=== PATIENT | female | born 1935 | race Caucasian/White ===

== ENCOUNTER 2018-05-14 05:18 | Inpatient (IN) ==
[2018-05-14] MEDS ORDERED: Metoprolol Tartrate 25 MG Tablet PO ONE (05:48)
[2018-05-14] MEDS ORDERED: Chlorhexidine Gluconate 2% 1 Pack (2 Cloths) TOPICAL ONE (05:48)
[2018-05-14] MEDS ORDERED: Vancomycin Inj 1,000 MG in Sodium Chlor 0.9% Inj 250 ML IV.SIG SCH (06:00)
[2018-05-14] MEDS ORDERED: SODIUM CHLOR 0.9% IV.SIG SCH (06:00)
[2018-05-14] MEDS ORDERED: ceFAZolin 2 GM Premix Inj 2 GM/50 ML PIGGYBACK IV.SIG SCH (06:00)
[2018-05-14] MEDS ORDERED: TRANEXAMIC ACID IV.SIG SCH (06:00)
[2018-05-14] MEDS ORDERED: Sodium Chlor 0.9% Inj 60 ML, Bupivacaine Liposo PF 1.3% Inj 20 ML P-ARTICULR SCH ×2 (06:00)
[2018-05-14] MEDS ORDERED: Sodium Chlor 0.9% Inj 500 ML IV.SIG SCH (06:00)
[2018-05-14] MEDS ORDERED: Chlorhexidine 4% Topical 120 APPLIC/120 ML Bottle TOPICAL SCH (06:00)
[2018-05-14] MEDS ORDERED: Neostigmine Inj 5 MG/5 ML Syringe IV.PUSH ONE (07:18)
[2018-05-14] MEDS ORDERED: Succinylcholine Inj 100 MG/5 ML Syringe IV.PUSH ONE (07:18)
[2018-05-14] MEDS ORDERED: Glycopyrrolate Inj 1 MG/5 ML Syringe IV.PUSH ONE (07:18)
[2018-05-14] MEDS ORDERED: hydrALAZINE HCl Inj 20 MG/ML Vial IV.PUSH ONE (07:18)
[2018-05-14] MEDS ORDERED: Bupivacaine/Epinephrine Inj 0.25% 50 ML Vial ONE (07:22)
[2018-05-14] MEDS ORDERED: Bisacodyl 10 MG Supp RECTAL PRN (07:30)
[2018-05-14] MEDS ORDERED: Morphine Inj 4 MG/ML Vial IV.PUSH PRN (07:30)
[2018-05-14] MEDS ORDERED: Post-op Orders (for Pharmacy) OTHER STA (07:30)
[2018-05-14] MEDS ORDERED: Carboxymethylcellulose 0.5% Opth Drops 15 ML Bottle EACH EYE PRN (09:00)
--- NOTE | 2018-05-14 09:18 | P.OP ---
- Preoperative Diagnosis (1) Osteoarthritis of left hip - Postoperative Diagnosis (1) Osteoarthritis of left hip Date of procedure: 05/14/18 Procedure: Left total hip arthroplasty, direct anterior exposure Anesthesia: GETA Surgeon: Austin Aggarwal MD Ammonia Box Operator: ALLYN Howard Operation and Findings: EBL: 200 cc INDICATION: This patient is an 82-year-old female with significant left hip pain related to extensive osteoarthritis. Conservative care as outlined in the attached records including medications, physical therapy, altered activity, injections. The patient presents now for surgical treatment. NOTE: Chelsea Howard PA-C was present for the entire surgical procedure as my elder assistant. In my medical opinion her skill and care was necessary for the proper management of this patient. COMPONENTS: COMPANY: [employer] CUP: [place], 50 mm, 100 series STEM: [place], size 14, high offset HEAD: Metal, 32 mm, +1 Polyethylene liner: 32, neutral PROCEDURE: This patient was brought to the operating room and anesthetized in the supine position. The patient was positioned on the [place] table with the operative leg extended and the contralateral leg held position. The hip and leg was scrubbed with alcohol followed by Hibiclens followed by ChloraPrep and draped sterilely in the clean air suite. Preoperative fluoroscopic images were utilized. A templating x-ray was obtained and printed to be used during the case. A timeout was done and antibiotics were given within a routine time window. A 4 inch incision was made starting 2 cm distal and 2 cm lateral to the anterior superior iliac spine. The tensor fascia isidoro fascia was identified and opened longitudinally in line with the incision. Deep retraction allowed good visualization in the interval between the tensor fascia isidoro and the rectus and this was opened further. The posterior fascia was opened. Crossing vessels were coagulated appropriately. The anterior aspect of the hip capsule was identified. Retractors were placed above and below the capsule. The capsule was opened longitudinally. Stay sutures were utilized creating flaps for the anterior capsule. The femoral neck was cut at the right location and completed with an oscillating saw. The head and neck was removed and taken to the back table. The leg was externally rotated 60 degrees and traction placed on the extremity. The labrum was excised. A portion of the capsule was excised. Visibility was excellent. Retractors were positioned. Starting 6 mm from the final size reamer, we began reaming up to 1 mm from the anticipated size. This was visualized under fluoroscopy. A trial cup was positioned. This also was visualized under fluoroscopy and minor adjustments were made. The final preparation with a 50MM reamer was utilized. The final cup was positioned in approximately 40 degrees of abduction and 20 degrees of forward flexion. This is visualized under fluoroscopy and was seated into the final position. Position was very satisfactory. A single hole eliminator was positioned followed by the plastic liner. The final solution was excellent. Traction was let off. The leg was brought into neutral rotation. A lifting took was positioned underneath the greater trochanter and proximal femur. The leg was maximally X rotated and the foot drop to the floor across midline. Retractors were positioned. A box osteotome was used to gain entrance into the top of the femur. The canal was probed with a finder to ensure that we are within the canal. Successive broaching up to the final stem size was accomplished. Trial reduction showed excellent balancing. Adjustments were made. The wound was irrigated copiously and the canal irrigated. The final stem was inserted in proper orientation. Trial again was trialed and the final head side was impacted. The hip was reduced and with 60 degrees of external rotation the leg to be dropped to the floor without evidence of anterior subluxation. Intraoperative x-rays were obtained. Local anesthesia was utilized for a field block including posterior capsule, inferior capsule, cephalad capsule, region of the greater trochanter, tensor fascia isidoro and subcutaneous tissue. The anterior capsule was repaired with interrupted #2 Tycron sutures. The fascia was run with 0 PDS on a loop. Subcutaneous tissue was approximated 2-0 Vicryl suture and skin with running intradermal 3-0 Vicryl followed by benzoin and Steri-Strips. A sterile dressing was applied. The patient was awakened and taken to the recovery room in satisfactory condition FINDINGS: There was severe osteoarthritis of the hip with remarkable inflammatory changes. The final solution appeared to be excellent. There was no complication that was appreciated.
--- NOTE | 2018-05-14 09:18 | P.DCO ---
- Physical Therapy Physical Therapy: Gait training (3 times weekly for 2 weeks) Hip: Total hip (Direct anterior exposure) Left Lower Extremity Weight Bearing: Weight bearing as tolerated - Nursing RN: 3 days/week x 2 weeks - Certification Need for Home Health services: I have seen patient Mariajose Cole on 05/14/18. My clinical findings support the need for the requested home health care services because: Need for Home Health Services: High risk of falls Homebound Certification: I certify that my clinical findings support that this patient is homebound because: Homebound Certification: Unsteady gait/balance
[2018-05-14] MEDS ORDERED: fentaNYL Citrate Inj 100 MCG/2 ML Ampul ONE (09:53)
--- NOTE | 2018-05-14 10:51 | XR ---
EXAM DATE: 05/14/2018 10:43 AM EST AGE/SEX: 82 years / Female INDICATIONS: Left total hip surgery. CLINICAL DATA: This is the patient's initial encounter. Patient reports that signs and symptoms have been present for 1 day and indicates a pain score of Nonresponsive. MEDICAL/SURGICAL HISTORY: None. None. COMPARISON: No prior exams available for comparison. FINDINGS: The patient is post left hip arthroplasty the orthopedic hardware is in excellent position. Alignment is good. CONCLUSION: Orthopedic hardware in good position. Electronically signed by: Oscar Gutierrez MD 05/14/2018 10:49 AM EST
[2018-05-14] MEDS: ceFAZolin 1 GM Premix Inj 1 GM/50 ML FROZ.PIGGY IV.SIG SCH ×2 (13:08→18:40)
[2018-05-14] MEDS ORDERED: Temazepam 15 MG Capsule PO PRN (21:00)
[2018-05-14] MEDS: Multivitamin/Minerals Therapeutic Tablet PO SCH ×2 (21:42→22:25)
[2018-05-14] MEDS: Senna/Docusate Sodium 8.6/50 MG Tablet PO SCH ×2 (21:42→21:43)
--- NOTE | 2018-05-14 22:28 | P.DS ---
Date of admission: 05/14/18 05:18 Primary care physician: Santo Patiño MD Attending physician on discharge: Austin Aggarwal Anticipated date of discharge: 05/17/18 Brief History from admission: Ms. Cole presents with a 1-2 year history of increasing left hip pain. She underwent right total hip arthroplasty in 2016 and did well. DS: Diagnosis - Discharge Diagnosis (1) Osteoarthritis of left hip Status: Acute DS: Medications - Discharge Medications Prescriptions: aspirin 81 mg PO BID #60 tab hydrocodone-acetaminophen 1 tab PO Q4H PRN #42 tab PRN Reason: Acute Pain DS: Summary Hospital Course: Surgical treatment was performed on the day of admission without complication. She recovered well in PACU. Pain was controlled with IV and oral medications. She was compliant with physical therapy and all total hip precautions. After 2 days she was found to be stable and discharged home with home health care. She was instructed to continue therapy, to pursue a high fiber diet for 3-5 days and to ice the operative limb daily. She was given prescriptions for norco and ASA. - Time Spent with Patient Total time spent providing and/or coordinating discharge services: Greater than 30 minutes - Quality: VTE Deep Vein Thrombosis/Pulmonary Embolism Present on Admission: No Exam Vital signs: Vital Signs 05/14/18 06:46 05/14/18 09:50 05/14/18 10:00 Temperature 97.2 F L 97.8 F Pulse Rate 58 L 75 87 Respiratory Rate 20 14 14 Blood Pressure 160/79 H 133/63 160/70 H Pulse Oximetry 99 99 100 05/14/18 10:15 05/14/18 10:30 05/14/18 10:45 Temperature 97.9 F Pulse Rate 83 87 85 Respiratory Rate 14 14 Blood Pressure 150/60 H 147/67 H 156/70 H Pulse Oximetry 100 100 100 05/14/18 11:45 05/14/18 12:00 05/14/18 16:00 Temperature 97.9 F 97.7 F 98.3 F Pulse Rate 87 90 79 Respiratory Rate 14 17 17 Blood Pressure 144/55 H 125/59 L 130/69 Pulse Oximetry 99 96 95 05/14/18 17:08 05/14/18 17:38 Temperature Pulse Rate Respiratory Rate 20 20 Blood Pressure Pulse Oximetry Intake & Output 05/14/18 05/14/18 05/15/18 06:59 18:59 06:59 Intake Total 2256.5 / 2256.5 50 / 50 Output Total 200 / 200 Balance 2056.5 / 2056.5 50 / 50 Weight 64.8 kg 64.8 kg Intake: IV 2256.5 / 2256.5 50 / 50 LR 1000 mL Inj 1,000 ML @ 30 1800 / 1800 mls/hr IV.SIG .Q24H THEA Rx#: [id number] Cyklokapron Inj 650 MG In NS 106.5 / 106.5 Inj 100 ML @ 200 mls/hr IV.SIG ONCE THEA Rx#:[id number] Vancomycin Inj 1,000 MG In NS 250 / 250 Inj 250 ML @ 250 mls/hr IV.SIG SHELLFISH MEAT SEPARATOR OPERATOR THEA Rx#:[id number] Ancef 1 GM Premix Inj 1 gm In 50 / 50 50 / 50 50 ml @ 100 mls/hr IV.SIG Q6H THEA Rx#:[id number] Ancef 2 GM Premix Inj 2 gm In 50 / 50 50 ml @ 100 mls/hr IV.SIG SHELLFISH MEAT SEPARATOR OPERATOR THEA Rx#:[id number] Output: Estimated Blood Loss 200 / 200 Other: # Voids 1 Date of Last Bowel Movement 05/13/18 Weight On Admission 64.8 kg Results Procedures completed during hospitalization: Left total hip arthroplasty, direct anterior approach Labs on day of discharge: Labs from last 24 hours 05/14/18 06:22 Blood Type AB Positive Antibody Screen Negative MTS Gel Crossmatch See Detail - Impressions ITS Impressions Hip X-Ray 05/14/18 00:00 CONCLUSION: Orthopedic hardware in good position. Discharge Plan - Discharge Disposition Patient Disposition: Discharge to SNF - Discharge Condition Condition: Good - Discharge Order Discharge Orders: Discharge Order (Routine); Ordered 05/16/18 Ordered By: Chelsea Howard Orthopedic Clear for Discharge (Routine); Ordered 05/14/18 Ordered By: Chelsea Howard - Discharge Details Anticipated Discharge Date: 05/16/18 - Physicians Team Primary Care Provider: Santo Patiño Attending Provider: Austin Aggarwal Other Providers: [facility] - Rxs /Orders / Referrals /Forms Prescriptions: New aspirin 81 mg Tablet,Chewable 81 mg PO BID Qty: 60 RF: 0 hydrocodone-acetaminophen 10-325 mg Tablet 1 tab PO Q4H PRN (Reason: Acute Pain) Qty: 42 RF: 0 Continue carboxymethylcellulose sodium [TheraTears] 0.25 % Drops 1 drp OPHTHALMIC (EYE) TID PRN (Reason: Dry Eye(S)) cholecalciferol (vitamin D3) [Vitamin D3] 2,000 unit Tablet 2,000 unit PO DAILY cyanocobalamin (vitamin B-12) [Vitamin B-12] 1,000 mcg Tablet 3,000 mcg PO DAILY docusate sodium 50 mg Capsule 50 mg PO HS escitalopram oxalate 20 mg Tablet 20 mg PO DAILY hydrocodone-acetaminophen 5-325 mg Tablet 1 tab PO BID PRN (Reason: Pain) lactobacillus combination no.4 [Probiotic] 3 billion cell Capsule 3,000 mmu cells PO DAILY multivitamin Tablet 1 tab PO DAILY [id number] [Airborne (lysine HCl)] 1,000-50 mg Tablet, Effervescent 1 tab PO PRN PRN (Reason: supplement) omega [id number]-[id number]-fish oil [Fish Oil] 1,000 mg (120 mg-180 mg) Capsule 1,200 mg PO DAILY Referrals: Santo Patiño MD [Primary Care Provider] - See Instructions - Post Discharge Care Plan Care Plan Goals: Discharge Care Plan Goals for Left Total Hip Replacement You had a hip replacement surgery. This means your natural hip was replaced with an artificial joint (prosthesis). You may be recovering at home or in a rehabilitation facility. Either way, you must take care of your new hip. Here are some goals to help you heal well. Directions to Meet your Goals: 1. Activity & Exercises: * Take pain medicine as directed by your doctor. * Dont drive until your doctor says its OK. And never drive while taking opioid pain medicine. * Wear the support stockings you were given in the hospital as directed by your surgeon. * Dont sit for more than 30 to 45 minutes at one time. * Dont lean forward while sitting. * Dont cross your legs. * Keep your feet flat on the floor. Dont turn your foot or leg inward. This stresses your hip joint. * Use an elevated toilet seat for 6 weeks after surgery. * Nap if you are tired, but dont stay in bed all day. * Sit on a firm cushion when you ride in a car and avoid sitting too low. Try not to bend your hip too much when getting in and out of the car. 2. Prevent Falls/Injury: * Follow your doctors orders regarding how much weight to put on the affected leg. * Dont bend at the hip when you bend over. Don't bend at the waist to put on socks and shoes. And avoid picking up items from the floor. * Use a cane, crutches, a walker, or handrails until your balance, flexibility, and strength improve. And remember to ask for help from others when you need it. * Free up your hands so that you can use them to keep balance. Use a ina pack , apron, or pockets to carry things. * Arrange your household to keep the items you need handy. Keep everything else out of the way. * Remove items that may cause you to fall, such as throw rugs and electrical cords. * Use nonslip bath mats, grab bars, an elevated toilet seat, and a shower chair in your bathroom * Sit on a shower stool or chair when you shower to keep from falling. 3. Precautions: * Prevent infection. Any infection will need to be treated immediately. Call your doctor right away if you think you might have an infection. * Tell your dentist that you have an artificial joint and take antibiotics as prescribed before any dental work. * Tell all your healthcare providers about your artificial joint before any medical procedure. * Maintain a healthy weight. Get help to lose any extra pounds. Added body weight puts stress on the joints. 4. Incision Care: * Prevent infection by washing your hands often. If an infection occurs, it will need to be treated right away. * Call your doctor right away if you think you may have an infection. Symptoms include a fever or an incision that leaks white, green, or yellow fluid. * Don't soak your incision in water until your doctor says its OK. This means no hot tubs, bathtubs, or swimming pools. * Follow your doctor's instructions for changing the dressing. * Dont rub the incision, or apply creams or lotions to it. * If you notice any redness or drainage around the bandage site, contact your surgeon's office immediately. 5. Follow-Up: Do Not miss your follow-up appointment. Keep up with all your appointments and yearly check ups When to call your doctor: Call your doctor right away if you have: Hip pain gets worse Pain or swelling in your calf or leg not related to your incision Tenderness or redness in your calf Fever of 100.4F (38C) or higher, or as directed by your healthcare provider Shaking chills Swelling or redness at the incision site gets worse Fluid draining from the incision Call 911: Call 911 right away if you have: Chest pain Shortness of breath Any pain or tenderness in your calf
[2018-05-15] MEDS: ceFAZolin 1 GM Premix Inj 1 GM/50 ML FROZ.PIGGY IV.SIG SCH (00:41)
--- NOTE | 2018-05-15 07:59 | P.PNOP ---
Subjective Interval history: Doing well. Pain well controlled. Ambulating independently Physical Exam Vital signs: Vital Signs 05/14/18 09:50 05/14/18 10:00 05/14/18 10:15 Temperature 97.8 F Pulse Rate 75 87 83 Respiratory Rate 14 14 14 Blood Pressure 133/63 160/70 H 150/60 H Pulse Oximetry 99 100 100 05/14/18 10:30 05/14/18 10:45 05/14/18 11:45 Temperature 97.9 F 97.9 F Pulse Rate 87 85 87 Respiratory Rate 14 14 Blood Pressure 147/67 H 156/70 H 144/55 H Pulse Oximetry 100 100 99 05/14/18 12:00 05/14/18 16:00 05/14/18 17:08 Temperature 97.7 F 98.3 F Pulse Rate 90 79 Respiratory Rate 17 17 20 Blood Pressure 125/59 L 130/69 Pulse Oximetry 96 95 05/14/18 17:38 05/14/18 20:00 05/15/18 00:00 Temperature 99.0 F 98.0 F Pulse Rate 77 77 Respiratory Rate 20 17 17 Blood Pressure 143/63 H 130/64 Pulse Oximetry 96 95 05/15/18 04:00 Temperature 98.1 F Pulse Rate 71 Respiratory Rate 18 Blood Pressure 104/51 L Pulse Oximetry 95 Intake & Output 05/14/18 05/15/18 05/15/18 18:59 06:59 18:59 Intake Total 2256.5 / 2256.5 1000 / 1000 Output Total 200 / 200 Balance 2056.5 / 2056.5 1000 / 1000 Weight 64.8 kg Intake: IV 2256.5 / 2256.5 1000 / 1000 LR 1000 mL Inj 1,000 ML @ 80 900 / 900 mls/hr IV.CONT .[id number] THEA Rx# :[id number] LR 1000 mL Inj 1,000 ML @ 30 1800 / 1800 mls/hr IV.SIG .Q24H THEA Rx#: [id number] Cyklokapron Inj 650 MG In NS 106.5 / 106.5 Inj 100 ML @ 200 mls/hr IV.SIG ONCE THEA Rx#:[id number] Vancomycin Inj 1,000 MG In NS 250 / 250 Inj 250 ML @ 250 mls/hr IV.SIG AEROTRIANGULATION SPECIALIST THEA Rx#:[id number] Ancef 1 GM Premix Inj 1 gm In 50 / 50 100 / 100 50 ml @ 100 mls/hr IV.SIG Q6H THEA Rx#:[id number] Ancef 2 GM Premix Inj 2 gm In 50 / 50 50 ml @ 100 mls/hr IV.SIG AEROTRIANGULATION SPECIALIST THEA Rx#:[id number] Output: Estimated Blood Loss 200 / 200 Other: # Voids 1 5 Date of Last Bowel Movement 05/13/18 05/13/18 Narrative: Left leg: Incision dry. Mild swelling. Mild ecchymosis. No calf tenderness. Neuro exam normal. Results - Imaging Impressions Hip X-Ray 05/14/18 00:00 CONCLUSION: Orthopedic hardware in good position. - Procedures Left total hip arthroplasty, direct anterior approach Assessment and Plan - Problem List (1) Osteoarthritis of left hip Code(s): M16.12 - Unilateral primary osteoarthritis, left hip Status: Acute - Assessment and Plan Osteoarthritis left hip. SURGERY: Left AMIE, anterior: POD #1. PLAN: Weightbearing as tolerated. Aspirin for anticoagulation. [place] as needed for pain. No dressing change. Home with home health care and home PT, today or tomorrow. All questions answered. Orthopedically stable
[2018-05-15] MEDS: Senna/Docusate Sodium 8.6/50 MG Tablet PO SCH ×2 (08:51→20:34)
[2018-05-15] MEDS: Multivitamin/Minerals Therapeutic Tablet PO SCH ×2 (08:51→20:34)
[2018-05-16 06:42] VITALS: PULSE 81
[2018-05-16] MEDS: Senna/Docusate Sodium 8.6/50 MG Tablet PO SCH (08:11)
[2018-05-16] MEDS: Multivitamin/Minerals Therapeutic Tablet PO SCH (08:12)
--- NOTE | 2018-05-16 08:32 | P.PNOP ---
Subjective Interval history: She continues to improve. Pain is controlled on PO meds. Talked with family and she plans to go home today. No new complaints otherwise. Physical Exam Vital signs: Vital Signs 05/15/18 12:00 05/15/18 16:00 05/15/18 20:00 Temperature 97.9 F 99.1 F 99.1 F Pulse Rate 90 101 H 78 Respiratory Rate 17 17 16 Blood Pressure 99/50 L 115/61 113/53 L Pulse Oximetry 94 L 91 L 95 05/16/18 00:00 05/16/18 04:00 Temperature 98.3 F 98.0 F Pulse Rate 97 H 81 Respiratory Rate 18 16 Blood Pressure 124/60 118/56 L Pulse Oximetry 93 L 95 Intake & Output 05/15/18 05/16/18 05/16/18 18:59 06:59 18:59 Weight 64.8 kg Other: # Voids 4 3 Date of Last Bowel Movement 05/13/18 05/13/18 Narrative: Sitting at bedside Daughter present NAD Left LE Hip dressing c/d/i, no new drainage, mild swelling, no erythema +motor at, +sens, +nvi No calf tenderness - Constitutional no acute distress Results - Procedures Left total hip arthroplasty, direct anterior approach Assessment and Plan - Ortho Post Op Day # 2 - Problem List (1) Osteoarthritis of left hip Code(s): M16.12 - Unilateral primary osteoarthritis, left hip Status: Acute - Assessment and Plan Osteoarthritis left hip. SURGERY: Left AMIE, anterior: POD #2. PLAN: DOing well. Ortho stable. Ok to d/c home w [facility] today after PT. PT - Weightbearing as tolerated LLE. Walker assist. Aspirin for anticoagulation. [place] as needed for pain. No dressing change unless saturated. Ice to operative limb qd for 7-10 days. F/U in 2 weeks as scheduled.
[2018-05-16 08:57] VITALS: BP 104/52; RESP 18; TEMP 98.6; O2SAT 94
== END 2018-05-16 10:40 | disposition home health service (06) ==
LOC: HSDI 05:18 → N06 12:13 → UNDODISIN 12:18
PROVIDERS: ADMIT Orthopaedic Surgery Orthopaedic Surgery of the Spine; ATTEND Orthopaedic Surgery Orthopaedic Surgery of the Spine